=== PATIENT | male | born 1965 | race Caucasian/White ===

== ENCOUNTER 2018-12-31 11:23 | Emergency (ER) | payer BC, OTHER ==
[~2018-12-31] VITALS: Ht 193 cm; Wt 107.1 kg
[2018-12-31 11:41] VITALS: BP 116/76
[2018-12-31] MEDS ORDERED: KETOROLAC 30 MG/1 ML IM ONE (12:00)
[2018-12-31] MEDS ORDERED: CYCLOBENZAPRINE 10 MG TABLET PO ONE (12:00)
[2018-12-31] MEDS ORDERED: OXYcodone/APAP 5/325MG TABLET PO ONE (12:00)
[2018-12-31] MEDS ORDERED: CYCLOBENZAPRINE 10 MG TABLET ONE (12:04)
[2018-12-31] MEDS ORDERED: KETOROLAC 30 MG/1 ML ONE (12:05)
[2018-12-31] MEDS ORDERED: OXYcodone/APAP 5/325MG TABLET ONE (12:05)
[2018-12-31] MEDS ORDERED: HYDROmorphone 1 MG/ML, 1ML VIAL ONE (13:20)
[2018-12-31] MEDS ORDERED: HYDROmorphone 1 MG/ML, 1ML AMP IM ONE (13:30)
== END 2018-12-31 14:39 | disposition home or self-care (01) ==
LOC: ED 14:33
DX: S33.5XXA Sprain of ligaments of lumbar spine, initial encounter (principal); S90.01XA Contusion of right ankle, initial encounter; W17.89XA Other fall from one level to another, initial encounter; Y93.89 Activity, other specified; Y92.69 Other specified industrial and construction area as the place of occurrence of the external cause; Y99.8 Other external cause status
CPT/HCPCS: 72110; 72148; 73610; 73650; 96372; 99284; J1170; J1885